=== PATIENT | male | born 1970 | race African-American/Black ===

== ENCOUNTER 2018-06-04 23:07 | Emergency (ER) | payer MEDICAID ==
[~2018-06-04] VITALS: Ht 180.3 cm; Wt 82.0 kg
[2018-06-05] MEDS ORDERED: BACITRACIN ZINC OINT UDPKT TOP ONE ×2 (00:30)
[2018-06-05] MEDS ORDERED: ONDANSETRON HCL 4MG/2ML INJ IV STA (00:30)
[2018-06-05] MEDS ORDERED: LIDOCAINE HCL/EPINEPHRINE 1%-EPI 1:100,000 20 ML VIAL INFIL ONE (00:30)
[2018-06-05] MEDS ORDERED: CEFAZOLIN 1000MG PREMIX 50 ML IV ONE (00:30)
[2018-06-05] MEDS ORDERED: MORPHINE SULFATE 4 MG/ML CPJ (NOT FOR IM USE) IV STA (00:30)
[2018-06-05] MEDS ORDERED: TETANUS, DIPHTHERIA, PERTUSSIS VAC/PF 0.5ML (>7YR OLD) IM ONE (00:30)
[2018-06-05] MEDS ORDERED: SODIUM CHLORIDE 0.9% 1,000 ML IV ONE (00:30)
[2018-06-05] MEDS ORDERED: MORPHINE SULFATE 4 MG/ML CPJ (NOT FOR IM USE) IV ONE (02:45)
[2018-06-05 04:16] VITALS: BP 138/75
== END 2018-06-05 04:16 | disposition home or self-care (01) ==
LOC: ER 23:07
DX: S01.01XA Laceration without foreign body of scalp, initial encounter (principal); S71.112A Laceration without foreign body, left thigh, initial encounter; I10 Essential (primary) hypertension; F41.9 Anxiety disorder, unspecified; F32.9 Major depressive disorder, single episode, unspecified; Z88.9 Allergy status to unspecified drugs, medicaments and biological substances; Y08.89XA Assault by other specified means, initial encounter; Y93.64 Activity, baseball; Y92.89 Other specified places as the place of occurrence of the external cause; Y99.8 Other external cause status
CPT/HCPCS: 12004; 70450; 71045; 73030; 73130; 73552; 90471; 90715; 96365; 96375; 96376; 99285; J0690; J2270; J2405; J3490; J7030; Z7610